=== PATIENT | female | born 1990 | race Hispanic/Latino ===

== ENCOUNTER 2018-08-06 14:29 | Emergency (ER) | payer BC ==
[2018-08-06 14:44] VITALS: RESP 15
[2018-08-06] MEDS ORDERED: Sodium Chloride 0.9% 1,000 ML IV STA (15:09)
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
[2018-08-06 16:01] LABS: BASO % 0.6 % (0.0-2.0); EOS # 0.3 K/uL (0.0-0.7); EOS % 3.3 % (0.0-4.0); HEMOGLOBIN 12.9 g/dL (12.0-16.0); LYMPH # 2.6 K/uL (1.0-4.3); LYMPH % 29.8 % (20.0-40.0); MEAN CELL VOLUME 90.4 fl (81.0-99.0); MEAN CORPUSCULAR HEMOGLOBIN 30.3 pg (27.0-31.0); MEAN CORPUSCULAR HGB CONC 33.6 g/dL (33.0-37.0); MEAN PLATELET VOLUME 8.3 fl (7.2-11.7); MONO # 0.8 K/uL (0.0-0.8); MONO % 9.2 % (0.0-10.0); NEUT % 57.1 % (50.0-75.0); RBC 4.24 Mil/uL (3.80-5.20); RED CELL DISTRIBUTION WIDTH 13.3 % (11.5-14.5); WHITE BLOOD COUNT 8.7 K/uL (4.8-10.8)
[2018-08-06 16:04] LABS: INR 0.9; PROTHROMBIN TIME 10.3 Seconds (9.8-13.1)
[2018-08-06 16:06] LABS: PARTIAL THROMBOPLASTIN TIME 31.7 Seconds (25.6-37.1)
[2018-08-06 16:12] LABS: ALB/GLOB RATIO 1.4 (1.0-2.1); ALBUMIN 4.1 g/dL (3.5-5.0); ALT/SGPT 23 U/L (9-52); AST/SGOT 25 U/L (14-36); BLOOD UREA NITROGEN 7 mg/dl (7-17); CALCIUM 9.2 mg/dL (8.4-10.2); GFR NON-AFRICAN AMERICAN > 60
[2018-08-06] MEDS ORDERED: Sodium Chloride 0.9% 50 ML IV ONE (17:21)
[2018-08-06] MEDS ORDERED: Iohexol 300 100 ML IJ ONE (17:21)
[2018-08-06 18:46] VITALS: BP 110/70; PULSE 78; TEMP 98
[2018-08-07 00:20] VITALS: O2SAT 100
--- NOTE | 2018-08-07 12:47 | CT ---
Date of service: 08/06/2018 PROCEDURE: CT Abdomen and Pelvis with contrast HISTORY: rule/out splenic injury COMPARISON: None. TECHNIQUE: Intravenous contrast dose: 90 cc Visipaque 320. Radiation dose: Total exam DLP = 295.37 mGy-cm. This CT exam was performed using one or more of the following dose reduction techniques: Automated exposure control, adjustment of the mA and/or kV according to patient size, and/or use of iterative reconstruction technique. FINDINGS: LOWER THORAX: Unremarkable. LIVER: Indeterminate mass in the right hepatic lobe, likely benign based on overall appearance and size. Hepatic steatosis. No gross lesion or ductal dilatation. GALLBLADDER AND BILE DUCTS: Unremarkable. PANCREAS: Unremarkable. No gross lesion or ductal dilatation. SPLEEN: Unremarkable. ADRENALS: Unremarkable. No mass. KIDNEYS AND URETERS: Unremarkable. No hydronephrosis. No solid mass. VASCULATURE: Unremarkable. No aortic aneurysm. No atherosclerotic calcification or mural plaque present. BOWEL: Unremarkable. No obstruction. No gross mural thickening. APPENDIX: A normal appendix is visualized in it's entirety. PERITONEUM: Unremarkable. No free fluid. No free air. LYMPH NODES: Unremarkable. No enlarged lymph nodes. BLADDER: Unremarkable. REPRODUCTIVE: Heterogeneous enhancing the uterus likely reflecting fibroid uterus. Likely adnexal cysts/follicles on the right. BONES: No acute fracture. OTHER FINDINGS: None. IMPRESSION: No significant or acute findings to account for/ related to the clinical presentation. Additional benign and/or incidental findings described above. No splenic abnormalities. Concordant results (preliminary interpretation) provided by [facility]. Procedure Completed: 17:32. Preliminary Report: Interpreted and electronically signed: 18:04. Final Interpretation: 12:42.August 07, 2018
== END 2018-08-06 18:45 | disposition home or self-care (01) ==
LOC: H.ER 14:29
DX: S39.91XA Unspecified injury of abdomen, initial encounter (principal); W22.8XXA Striking against or struck by other objects, initial encounter; Y92.89 Other specified places as the place of occurrence of the external cause
CPT/HCPCS: 74177; 80053; 81025; 85025; 85610; 85730; 99283; J7030; Q9967